=== PATIENT | male | born 2000 | race Caucasian/White ===

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

== ENCOUNTER 2022-01-25 22:10 | Emergency (ER) | payer MEDICAID, SELFPAY ==
--- NOTE | 2022-01-25 22:15 | RT.EKG_ITS ---
APPROVED REPORT Exam: Resting ECG Reason for Exam: elevated hr Patient Location: E HR:100 bpm ECG Measurements Heart Rate 100 AXIS DE 137 P 60 QRSd 88 QRS 99 QT 344 T 25 QTc 444 Conclusion Sinus tachycardia...rate> 99 Physician: no stemi, intervals normal
[2022-01-25 22:16] VITALS: BP 157/93; PULSE 105; RESP 18; TEMP 36.8; O2SAT 98
--- NOTE | 2022-01-25 23:05 | ED.GENADUL_ITS ---
Discharge Plan Disposition Patient Disposition: HOME Condition: Good Discharge Details Clinical Impression: Medication side effect, Dehydration Primary Care Provider: Mitzy Montano ED Provider: Otoniel Fontenot Home Meds and New Rx's Prescriptions: Continued escitalopram oxalate [Lexapro] 5 mg tablet 5 mg PO DAILY Qty: 49 0RF Rx Instructions: one tablet daily x 7 days, then 2 tablets daily Discharge Instructions Instructions: Dehydration (ED) Additional Instructions: At this time there appears to be a combination of a few different things. Some of your symptoms I think are attributed to starting your new medication. These will often resolve after few days of being on the medication. Additionally you appear a bit dehydrated, it is important to drink 10 to 12 cups of water a day. Additionally I would recommend holding off on any marijuana use as this can interact with medication and exacerbate symptoms. As we discussed together a plan at this time is to continue your medication and reassess in 48 hours. If you notice any worsening of your symptoms or negative changes it may be indicated to stop the medication. Please follow-up closely with your lace weaver to discuss this. If you notice any worsening of your symptoms, or any new symptoms such as vomiting, diarrhea, fever, chills, shortness of breath, chest pain, numbness, weakness, or fainting , please return immediately to the emergency department for reevaluation. Please follow up with your primary care provider as soon as possible for reassessment and reevalua tion. As always, it was a pleasure participating in your medical care today. Referrals: Mitzy Montano, COMPUTER EDUCATION PROFESSOR [Primary Care Provider] - Medical Decision Making This is a pleasant 21-year-old male with a past medical history of depression who was recently started on 5 mg of escitalopram who presents today for evaluation of shakiness, lightheadedness, tingling sensation, feelings of mild anxiousness, and uneasiness. Patient denies any homicidal or suicidal ideations. Patient states that he has been on previous depression medications before and he had similar symptoms to this. He started this new medication just 2 and half days ago, and since then has been feeling this way. He does smoke marijuana occasionally. And he has smoked recently. He denies any IV or illicit drug use. He denies any homicidal or suicidal ideations. He states that his symptoms are tolerable however he was concerned that there could be something else wrong like serotonin syndrome, and wanted to get checked out. He denies any other complaints at this time. No other modifying. He does admit to drinking 3-4 small surfaces of water per day but denies any other significant fluid intake. Of note he does get slightly more lightheaded he does stand up. He denies any family history of significant cardiac disease, sudden or dysrhythmias. Physical exam demonstrates well-appearing male. No significant tacky dysrhythmia, no fever. No profound hypotension. No hyperreflexia or leadpipe rigidity. Patient has no evidence of clonus or ocular clonus. No hallucinations. No confusion. No vomiting or diarrhea. EKG was performed and demonstrates normal intervals, and no signs of significant abnormality. Bedside echo was performed showed no evidence of pericardial effusion or other hypertrophy. At this time I do believe that the patient's symptoms are mild side effect from his medication, compounded by his marijuana use and made worse by his mild dehydration. We had a long discussion about this, and the patient feels very comfortable going home at this time as there is no evidence of serotonin syndrome or other significant abnormality currently. I did discuss halting the medication versus continuing for the 48 hours to see if the symptoms improved, and the patient has elected to continue with the medication at this time. I have recommended increasing oral fluid intake, decrease in marijuana use, and close follow-up with his lace weaver in the 36 to 48 hours. Additionally I did asked the patient if he was likely to discuss any of this with his family, if he has specifically requested at this time but I do not contact his parents in regards to this. I have extensively reviewed the treatment plan and discharge instructions with the patient. I have addressed all patient concerns at this time. The patient was made aware of what symptoms to monitor for that would warrant a return to the emergency department. Discussed the plan with the patient, they demonstrate verbal understanding and agreement with our assessment and plan at this time. The documentation in this chart was dictated using [employer] dictation software. Please excuse any dictation errors. HPI General Date/Time Provider Initiated Documentation: 01/25/22 22:11 . HPI Narrative: This is a pleasant 21-year-old male with a past medical history of depression who was recently started on 5 mg of escitalopram who presents today for evaluation of shakiness, lightheadedness, tingling sensation, feelings of mild anxiousness, and uneasiness. Patient denies any homicidal or suicidal ideations. Patient states that he has been on previous depression medications before and he had similar symptoms to this. He started this new medication just 2 and half days ago, and since then has been feeling this way. He does smoke marijuana occasionally. And he has smoked recently. He denies any IV or illicit drug use. He denies any homicidal or suicidal ideations. He states that his symptoms are tolerable however he was concerned that there could be something else wrong like serotonin syndrome, and wanted to get checked out. He denies any other complaints at this time. No other modifying. He does admit to drinking 3-4 small surfaces of water per day but denies any other significant fluid intake. Of note he does get slightly more lightheaded he does stand up. He denies any family history of significant cardiac disease, sudden or dysrhythmias. Related Data Home Medications Medication Instructions Recorded Confirmed escitalopram oxalate 5 mg tablet 5 mg PO DAILY #49 tab 01/21/22 01/21/22 (Lexapro) Previous Rx's Medication Instructions Recorded escitalopram oxalate 5 mg tablet 5 mg PO DAILY #49 tab 01/21/22 (Lexapro) Allergies Allergy/AdvReac Type Severity Reaction Status Date / Time No Known Allergies Allergy Verified 01/21/22 08:18 General Stated Complaint: GenMedical STEVE: 3 Review of Systems All systems reviewed & are unremarkable except as noted in HPI and below PFSH All Active Problems Medication side effect (Acute) Dehydration (Acute) Gender dysphoria (Acute) Non-binary gender (Acute) Medical History OM (otitis media), recurrent Surgical History Circumcision Myringotomy w/ PE (pressure equalizing) tubes Family History Mother Anxiety MRSA (methicillin resistant Staphylococcus aureus) hx of Other MRSA (methicillin resistant Staphylococcus aureus) all family memebers with hx of Social History Smoking/Tobacco Use Status: Never Second Hand Exposure: Yes Smoking risk assessment performed?: Yes Alcohol Intake: never Drug use: Never Substance use type: marijuana Pets and animals: Yes Pets and animals: cat(s) Do you feel safe at home: Yes Do you feel safe in your relationship?: Yes Exam Narrative Exam Narrative: 1.Const: Well-nourished, Well-developed, appearing stated age 2.Eyes: PERRL, no conjunctival injection, and symmetrical lids. 3.ENT: Atraumatic external nose and ears. Notably dry MM. Neck: Symmetric, trachea midline, No thyromegaly. 4.CVS: +S1/S2, No murmurs or gallops. Peripheral pulses 2+ and equal in all extremities. Brisk capillary refill in all extremities. 5.RESP: Unlabored respiratory effort. Clear to auscultation bilaterally. No wheezes rales or rhonchi 6.GI: Soft, Nontender/Nondistended, No hepatosplenomegaly. No guarding or rebound. 7.MSK: Normocephalic/Atraumatic, Extremities w/o deformity or ttp No cyanosis or clubbing, Normal movement of all extremities 8.Skin: Warm, Dry. No rashes or lesions. 9.Neuro: pattern clerk II-XII grossly intact. Sensation grossly intact, no focal neurologic deficits. All 6 cardinal planes of vision are fully intact. No evidence of rotatory or vertical nystagmus. The patient demonstrated a normal [id number], good dexterity. There was no evidence of dysdiadochokinesia. Patient was able to ambulate without difficulty. There was no wide-based gait. Romberg testing was normal. [id number] testing was normal. Sensation was intact bilaterally as well as muscle strength bilaterally for all extremities. Patient was able to verbalize butter cup with no slurring, or miss pronunciation. No hyperreflexia. No leadpipe rigidity. 10.Psych: (AAO) x3. Appropriate mood and affect Course Vital Signs Vital signs: Vital Signs Temperature 36.8 C 01/25/22 22:16 Pulse 105 H 01/25/22 22:16 Respiratory Rate 18 01/25/22 22:16 Blood Pressure 157/93 H 01/25/22 22:16 Pulse Oximetry 98 01/25/22 22:16 Temperature 36.8 C 01/25/22 22:16 Temperature Source Tympanic 01/25/22 22:16 Pulse 105 H 01/25/22 22:16 Respiratory Rate 18 01/25/22 22:16 Respiratory Effort 01/25/22 22:18 Respiratory Depth Normal 01/25/22 22:18 Respiratory Pattern Normal 01/25/22 22:18 Blood Pressure 157/93 H 01/25/22 22:16 Blood Pressure Position Supine 01/25/22 22:16 Pulse Oximetry 98 01/25/22 22:16 Oxygen Delivery Method Room Air 01/25/22 22:16 Oxygen Flow Rate 0 01/25/22 22:16 Pain Level 0 01/25/22 22:16
== END 2022-01-25 23:10 | disposition home or self-care (01) ==
PROVIDERS: Emergency Provider Student in an Organized Health Care Education/Training Program; PCP Nurse Practitioner Family
DX: E86.0 Dehydration (principal); F32.A Depression, unspecified; R20.2 Paresthesia of skin; R42 Dizziness and giddiness; T43.225A Adverse effect of selective serotonin reuptake inhibitors, initial encounter; R00.0 Tachycardia, unspecified
CPT/HCPCS: 93005; 99283; 93010

== ENCOUNTER 2022-02-11 02:57 | Outpatient (CLI) | payer MEDICAID, SELFPAY ==
[2022-02-11 12:22] LABS: Abs Immature Grans 0.02 10^3/uL (0.0-0.06); Absolute Basophil Count 0.04 10^3/uL (0.0-0.2); Absolute Eosinophil Count 0.11 10^3/uL (0.0-0.7); Absolute Lymphocyte Count 1.53 10^3/uL (1.2-3.4); Absolute Monocyte Count 0.59 10^3/uL (0.1-0.8); Absolute Neutrophil Count 3.75 10^3/uL (1.2-6.7); Basophils % 0.7; Eosinophils % 1.8; HCT 46.8 % (40.0-50.0); HGB 15.5 g/dL (13.5-17.5); Immature Grans % 0.3; Lymphocytes % 25.3; MCH 29.6 pg (27.0-33.0); MCHC 33.1 % (32.0-36.0); MCV 90 fL (80-95); MPV 10.8 fL (8.0-11.0); Monocytes % 9.8; Neutrophils % 62.1; Platelet Count 299 10^3/uL (130-400); RBC 5.23 10^6/uL (4.36-5.78); RDW 12.4 % (11.8-14.1); RDW-SD 41.1 fL; WBC 6.04 10^3/uL (4.4-10.8)
[2022-02-11 13:25] LABS: ALT 12 U/L (16-63); AST 13 U/L (15-37); Albumin 4.3 g/dL (3.4-5.0); Alkaline Phosphatase 134 U/L (46-116); Anion Gap 7.8 mmol/L (3-11); BUN 6 mg/dL (7-18); Bilirubin, Total 0.3 mg/dL (0.2-1.0); CO2 28.2 mmol/L (21.0-32.0); CREATININE 0.9 mg/dL (0.70-1.30); Chloride 103 mmol/L (98-107); Glucose 94 mg/dL (74-106); Potassium 4.3 mmol/L (3.5-5.1); Sodium 139 mmol/L (136-145); TSH (W/Ref FT4) 2.64 uIU/mL (0.52-4.13); Total Protein 7.4 g/dL (6.4-8.2)
== END 2022-02-11 02:58 | disposition home or self-care (01) ==
LOC: LBO 02:57
PROVIDERS: PCP Nurse Practitioner Family; Visit Provider Nurse Practitioner Family
DX: R63.6 Underweight (principal); F41.8 Other specified anxiety disorders
CPT/HCPCS: 36415; 80053; 84443; 85025